=== PATIENT | female | born 1985 | race Two or more races ===

== ENCOUNTER 2023-09-01 08:39 | Emergency (ER) | payer SELFPAY ==
[2023-09-01 08:47] VITALS: RESP 18; TEMP 98.3; BMI 27.3
[2023-09-01] MEDS: ACETAMINOPHEN 500 MG TABLET (FP) PO ONE (09:31)
[2023-09-01 10:07] LABS: HCG,QUALITATIVE URINE Positive
[2023-09-01 10:10] LABS: URINE APPEARANCE TURBID; URINE BILIRUBIN NEGATIVE (NEGATIVE); URINE COLOR RED; URINE GLUCOSE (UA) NEGATIVE (NEGATIVE)
[2023-09-01 10:11] LABS: BASO % 1.1 % (0-2.0); EOS % 0.8 % (0-4.5); HEMOGLOBIN 13.7 GM/dL (10.7-15.3); LYMPH % 17.2 % (8-40); MCH 30.4 pg (25.7-33.7); MCHC 32.7 g/dl (32.0-36.0); MEAN PLT VOLUME 8.6 fl (7.5-11.1); MONO % 8.8 % (3.8-10.2); NEUT % 72.1 % (42.8-82.8); PLATELET COUNT 304 10^3/uL (134-434); RBC 4.51 M/mm3 (3.60-5.2); RDW 13.7 % (11.6-15.6); URINE KETONE NEGATIVE (NEGATIVE); URINE LEUK ESTERASE 1+ (NEGATIVE); URINE NITRITE NEGATIVE (NEGATIVE); URINE PROTEIN 4+ (NEGATIVE)
[2023-09-01 10:24] LABS: POTASSIUM 3.7 mmol/L (3.5-5.1)
[2023-09-01 10:26] LABS: BLOOD UREA NITROGEN 5.3 mg/dL (7-18); CALCIUM 9.2 mg/dL (8.5-10.1)
[2023-09-01 10:27] LABS: ALBUMIN 3.5 g/dl (3.4-5.0)
[2023-09-01 10:30] LABS: CREATININE 0.5 mg/dL (0.55-1.3)
[2023-09-01 10:31] LABS: BILIRUBIN,TOTAL 0.4 mg/dL (0.2-1); TOT PROT 6.9 g/dl (6.4-8.2)
[2023-09-01 10:56] VITALS: BP 141/99; PULSE 87
== END 2023-09-01 13:44 | disposition home or self-care (01) ==
LOC: JER 08:39
DX: O26.891 Other specified pregnancy related conditions, first trimester (principal); R10.9 Unspecified abdominal pain; O12.11 Gestational proteinuria, first trimester; Z3A.00 Weeks of gestation of pregnancy not specified
CPT/HCPCS: 36415; 76817-TC; 80053; 81003; 81015; 84702; 84703; 85025; 86850; 86900; 86901; 87086; 99284-25

== ENCOUNTER 2023-09-05 11:39 | Emergency (ER) | payer SELFPAY ==
[2023-09-05 12:07] VITALS: BP 141/97; PULSE 77; RESP 18; TEMP 97.3
== END 2023-09-05 13:35 | disposition home or self-care (01) ==
LOC: JER 11:39 → JERFT 11:39
DX: N93.9 Abnormal uterine and vaginal bleeding, unspecified (principal)
CPT/HCPCS: 36415; 84702; 99283-25